=== PATIENT | male | born 1990 | race Caucasian/White ===

== ENCOUNTER → 2020-10-04 10:53 | Outpatient (CLI) | payer BC, SELFPAY | PROVIDERS: Visit Provider Internal Medicine | DX: Z20.822 Contact with and (suspected) exposure to COVID-19 (principal); U07.1 COVID-19 | CPT/HCPCS: U0003 ==

== ENCOUNTER 2021-01-29 19:00 | Emergency (ER) | payer BC, SELFPAY ==
[2021-01-29 19:40] VITALS: BP 147/89; PULSE 73; RESP 19; TEMP 36.9; O2SAT 98; BMI 57.7
--- NOTE | 2021-01-29 20:12 | HMH.EDUTC ---
[facility] [place] Clinical Impression: Ear problem Qualifiers: Laterality: right Qualified Code(s): H93.91 - Unspecified disorder of right ear Disposition: Home, Self-Care Condition on Discharge: Good Instructions: DI for Ear Pain-Adult, Ibuprofen Additional Instructions: Follow up in the the office tomorrow with Dr Parra as scheduled at 1130 for further evaluation and treatment Return if needed Straight to ER if any life threatening symptoms Referrals: Bahman Zapata [Primary Care Provider] - Kwasi Parra MD [Staff Physician] - 01/30/21 11:30 am Forms: Work/School Release Time of Disposition: 20:29 Medical Decision Making - Rasheed Inquiry Pt receiving controlled substance: No Rasheed was queried for this patient: No Vital Signs: 01/29/21 19:40 Temperature 98.4 F Temperature Source Oral Pulse Rate [Left] 73 Respiratory Rate 19 Blood Pressure [Right Arm] 147/89 H Blood Pressure Mean [Right Arm] 108 02 Sat by Pulse Oximetry 98 Orders (Tests/Meds): ED MEDICATIONS Discontinued Medications Generic Name Dose Route Start Last Admin Trade Name Felipe PRN Reason Stop Dose Admin Ceftriaxone Sodium 1 gm 01/29/21 20:22 01/29/21 20:34 Ceftriaxone 1gm Vial IM 01/29/21 20:23 1 gm ONCE ONE Administration Protocol Lidocaine HCl 0 ml 01/29/21 20:22 01/29/21 20:34 Lidocaine 1% 5ml Pf Vial IM 01/29/21 20:23 2.5 ml ONCE ONE Administration - Physician Consults Physician Consulted: Dr Parra Time: 20:27 Reason -: ENT Eval/Care Comment/Response: Spoke with Dr Parra and he advised to give him a shot of Rocephin and have him follow up in the office tomorrow at 1130 for further evaluation and treatment [facility] [place] - General Stated complaint: R ear infection Time Seen by Provider: 01/29/21 20:12 Mode of Arrival: Ambulatory Source of Information: Patient Limitations: No Limitations Description of Symptoms (Recalled from Triage Doc. by RN): R ear ache. HEENT Symptoms (Recalled from RN notes): Yes (R ear ache) Resp Symptoms (Recalled from RN notes): No Skin Symptoms (Recalled from RN notes): No MS Symptoms (Recalled from RN notes): No Functional Status (Recalled from RN notes): na - History of Present Illness Provider Complaint: Patient states that he has been having pain in his right ear for a couple of days State that earlier when he got out of the shower he noticed he had some blood in his right ear and pain was worse State that hearing in that ear is muffled and feels like he has fluid in it - Related Data Allergies Allergy/AdvReac Type Severity Reaction Status Date / Time No Known Allergies Allergy Verified 01/29/21 19:45 - Worker's Comp Is this a Worker's Comp case?: No [facility] History - Hepatitis A Screen Drug use history?: No High risk sexual behaviors?: No History of sexually transmitted infection?: No Currently employed?: No Childcare worker?: No Do you have indoor plumbing?: Yes Do you have electricity?: Yes Attestation statement:: This patient has been screened for Hepatitis A risk factors. I have reviewed the patient's past medical history: Yes - Social History Alcohol Intake: never ROS Obtained: Yes All systems reviewed & no additional complaints, Yes Systems reviewed as appropriate & no additional complaints - Constitutional Constitutional: Reports system reviewed and no additional complaints, except as docu, Denies body ache, Denies chills, Denies fever(s) - ENT Ears, Nose, Mouth, and Throat: Reports system reviewed and no additional complaints, except as docu, Reports otalgia (Pain with blood in right ) - Cardiovascular Cardiovascular: Reports system reviewed and no additional complaints, except as docu Physical Exam - General General appearance: alert, in no apparent distress - Expanded ENT Exam TM/Canal exam: Right TM: erythema (with blood noted in canal, unable to visualize TM fully appears to have small amount of blood noted on TM poss
[2021-01-29 21:11] VITALS: BP 148/84; PULSE 75; RESP 18; TEMP 36.9
== END 2021-01-29 21:11 | disposition home or self-care (01) ==
PROVIDERS: Emergency Provider Nurse Practitioner; PCP Internal Medicine
DX: H92.01 Otalgia, right ear (principal); H93.91 Unspecified disorder of right ear
CPT/HCPCS: 96372; 99202; G0463

== ENCOUNTER → 2021-05-28 11:08 | Outpatient (CLI) | payer BC, SELFPAY ==
[2021-05-28 11:24] LABS: Coronavirus 19, PCR Not Detected (NotDetected); Influenza B, PCR Not Detected (NotDetected)
[2021-05-28 11:32] LABS: Strep Scrn Group A (Rapid) Negative (Negative)
[2021-05-28 12:19] LABS: Influenza A, PCR Detected (NotDetected)
== END ==
PROVIDERS: PCP Internal Medicine; Visit Provider Internal Medicine
DX: Z20.822 Contact with and (suspected) exposure to COVID-19 (principal); J11.1 Influenza due to unidentified influenza virus with other respiratory manifestations
CPT/HCPCS: 87430; C9803; U0003; U0005

== ENCOUNTER 2023-10-07 10:53 | Outpatient (CLI) | payer BC, SELFPAY ==
--- NOTE | 2023-10-07 10:58 | XR_ITS ---
FINAL REPORT CLINICAL HISTORY: LUMBAR PAIN COMPARISON: None FINDINGS: LUMBOSACRAL SPINE SERIES Five views of the lumbosacral spine were obtained. There is no fracture present. There is no malalignment. There is mild degenerative change with small osteophytes. IMPRESSION: Mild degenerative change without acute process. Reviewed, Interpreted and Dictated by Joe Sage III, MD Transcribed by Tuyet Paez Authenticated and [facility]
== END 2023-10-07 23:59 ==
LOC: RAD 10:54
PROVIDERS: PCP Nurse Practitioner; Visit Provider Nurse Practitioner
DX: M54.50 Low back pain, unspecified (principal)
CPT/HCPCS: 72110

== ENCOUNTER 2023-10-27 14:56 | Outpatient (CLI) | payer BC, SELFPAY ==
--- NOTE | 2023-10-27 14:59 | MR_ITS ---
FINAL REPORT CLINICAL HISTORY: LUMBAR PAIN FINDINGS: Multiplanar MR imaging of the lumbar spine was performed without contrast. On the sagittal T2-weighted images, there is abnormal decreased signal throughout the lumbar discs. There is mild loss of height at L2-3, L3-4, and L4-5 levels. The vertebrae are of normal height. The vertebral alignment is normal. L1-2: There is no significant canal stenosis or neural foraminal narrowing. L2-3: There is no significant canal stenosis or neural foraminal narrowing. L3-4: Mild diffuse disc bulge is present with mild bilateral neural foraminal narrowing. L4-5: Mild diffuse disc bulge is present with mild bilateral neural foraminal narrowing. L5-S1: Moderate diffuse disc bulge is present. There is a right posterolateral disc protrusion with high-grade right neural foraminal narrowing. IMPRESSION: Right posterolateral disc protrusion at L5-S1 with high-grade right neural foraminal compromise. Reviewed, Interpreted and Dictated by Mk Lee MD Transcribed by Mindy Cat Authenticated and [facility]
== END 2023-10-27 23:59 | disposition home or self-care (01) ==
LOC: RAD 14:57
PROVIDERS: PCP Nurse Practitioner; Visit Provider Nurse Practitioner
DX: M54.50 Low back pain, unspecified (principal)
CPT/HCPCS: 72148; 76376